=== PATIENT | female | born 1985 | race Caucasian/White ===

== ENCOUNTER 2017-05-20 23:44 | Emergency (ER) | payer BC, OTHER ==
[2017-05-21] MEDS ORDERED: Famotidine 20 MG TAB ONE (00:08)
[2017-05-21] MEDS ORDERED: predniSONE 20 MG TAB ONE (00:08)
== END 2017-05-21 00:35 | disposition home or self-care (01) ==
LOC: SCSER 23:44
DX: T78.40XA Allergy, unspecified, initial encounter (principal); K58.9 Irritable bowel syndrome, unspecified; F32.9 Major depressive disorder, single episode, unspecified
CPT/HCPCS: J7506; J7620

== ENCOUNTER 2019-01-14 22:23 | Inpatient (IN) | payer BC ==
[~2019-01-14 22:23] MED LIST: Bupivacaine/Epinephrine 0.25% 30 ML VIAL ONE; ePHEDrine/0.9% NaCl/PF SYRINGE 50 mg/10 ml ONE
[2019-01-14] MEDS: Lactated Ringer's 1,000 ML IV SCH (23:00)
[2019-01-14 23:14] VITALS: BMI 32.8
[2019-01-14] MEDS ORDERED: Ondansetron PF 4 MG/2 ML Vial IVP PRN (23:21)
[2019-01-14] MEDS ORDERED: Carboprost 250 MCG/ML AMP IM PRN (23:21)
[2019-01-14] MEDS ORDERED: Lidocaine 1% (PF) 30 ML VIAL SC PRN (23:21)
[2019-01-14] MEDS ORDERED: Ibuprofen 800 MG TAB PO PRN (23:21)
[2019-01-14] MEDS ORDERED: hydrALAZINE 20 MG/ML VIAL SLOW IVP PRN ×2 (23:21→23:49)
[2019-01-14] MEDS ORDERED: Misoprostol 200 MCG TAB PR PRN (23:21)
[2019-01-14] MEDS ORDERED: Promethazine HCl 25 MG/ML VIAL IM PRN (23:21)
[2019-01-14] MEDS ORDERED: Acetaminophen 500 MG TAB PO PRN (23:21)
[2019-01-14] MEDS ORDERED: NS / Oxytocin 40 units/1000ml 1,000 ML IV PRN (23:21)
[2019-01-14] MEDS ORDERED: Diphenoxylate HCl/Atropine Tablet PO PRN ×2 (23:21)
[2019-01-14] MEDS ORDERED: hydrALAZINE 20 MG/ML VIAL ONE (23:26)
[2019-01-14] MEDS ORDERED: NS w/ Oxytocin 10 units 500 ML IV SCH (23:30)
[2019-01-14] MEDS ORDERED: Magnesium Sulfate 20 gm/500 ml 20 GM/500 ML BAG IVPB SCH (23:45)
[2019-01-14 23:51] LABS: Hemoglobin 12.7 g/dL (12.0-16.0); Mean Corpuscular HGB CONC 34.6 g/dL (32.0-36.0); Mean Corpuscular Hemoglobin 30.4 pg (27.0-31.0); Mean Platelet Volume 8.4 fL (7.4-10.4); Platelet Count 293 thou/uL (130-400); RBC Distribution Width 12.5 % (11.5-14.5); Red Blood Cell (RBC) Count 4.18 mill/uL (4.20-5.40); White Blood Cell (WBC) Count 13.8 thou/uL (4.8-10.8)
[2019-01-14] MEDS ORDERED: Magnesium Sulfate 20 gm/500 ml 20 GM/500 ML BAG ONE (23:56)
[2019-01-14] MEDS ORDERED: Calcium Gluc 4.6 MEQ/10 ML (100 MG/ML) SLOW IVP PRN (23:56)
[2019-01-15] MEDS ORDERED: Fentanyl 4 mcg/Bup 0.1% Cadd 100 ML ONE (00:01)
[2019-01-15 00:13] LABS: ALT (SGPT) 20 U/L (8-55); AST (SGOT) 19 U/L (5-34); Albumin 3.4 g/dL (3.5-5.0); Alkaline Phosphatase 269 U/L (40-150); Anion Gap 14 mmol/L (10-20); BUN (Urea Nitrogen) 10 mg/dL (7.0-18.7); Bilirubin, Total 0.3 mg/dL (0.2-1.2); Calc. Creatinine Clearance 160 mL/min (70-130); Calcium 9.7 mg/dL (7.8-10.44); Carbon Dioxide 18 mmol/L (22-29); Chloride 106 mmol/L (98-107); Estimated GFR-MDRD Greater than 90; Globulin 3.4 g/dL (2.4-3.5); Glucose 125 mg/dL (70-105); Potassium 3.5 mmol/L (3.5-5.1); Protein, Total 6.8 g/dL (6.0-8.3); Sodium 134 mmol/L (136-145)
[2019-01-15 00:30] LABS: HBSAg Index 0.21 S/CO (0-0.99); Hep B Surf Ag Non-Reactive S/CO (NonReactive); Syphilis Antibody Nonreactive (Nonreactive)
[2019-01-15] MEDS ORDERED: PHENYLEPHRINE-NS 100 MCG/ML 10 ML SYRINGE ONE ×3 (01:10→12:24)
[2019-01-15] MEDS ORDERED: ePHEDrine/0.9% NaCl/PF SYRINGE 50 mg/10 ml ONE ×2 (01:43→03:01)
[2019-01-15] MEDS: Lactated Ringer's 1,000 ML IV SCH ×3 (02:06→16:12)
[2019-01-15] MEDS ORDERED: Fentanyl 100 MCG/2 ML VIAL ONE (02:06)
[2019-01-15] MEDS ORDERED: Bicitra 30 ML UDCUP ONE (03:00)
[2019-01-15] MEDS ORDERED: Ondansetron PF 4 MG/2 ML Vial ONE ×2 (03:01→12:24)
[2019-01-15] MEDS ORDERED: Oxytocin 10 UNITS/ML VIAL ONE ×2 (03:01→03:49)
[2019-01-15] MEDS ORDERED: Lidocaine 2% 10 ML INJ ONE (03:02)
[2019-01-15] MEDS ORDERED: HYDROmorphone 2 MG/ML VIAL SLOW IVP PRN (03:47)
[2019-01-15] MEDS ORDERED: Ondansetron HCl/PF 4 MG/2 ML Vial IVP PRN (03:47)
[2019-01-15] MEDS ORDERED: MORPHINE 5 MG/10 ML PF VIAL ONE (03:47)
[2019-01-15] MEDS ORDERED: Ondansetron PF 4 MG/2 ML Vial IVP PRN (03:47)
[2019-01-15] MEDS ORDERED: L&D-Morphine 4 MG/ML VIAL SLOW IVP PRN (03:47)
[2019-01-15] MEDS ORDERED: Naloxone HCl 0.4 mg/ml Vial IV PRN (03:47)
[2019-01-15] MEDS ORDERED: Ketorolac Tromethamine 30 MG/ML VIAL IVP PRN (03:47)
[2019-01-15] MEDS ORDERED: Naloxone HCl 0.4 mg/ml Vial IVP PRN ×2 (03:47)
[2019-01-15] MEDS ORDERED: Meperidine HCl/PF 25 MG/ML VIAL SLOW IVP PRN (03:47)
[2019-01-15] MEDS ORDERED: Promethazine HCl 25 MG SUPP PR PRN (03:47)
[2019-01-15] MEDS ORDERED: diphenhydrAMINE 50 MG/ML VIAL IVP PRN (03:47)
[2019-01-15] MEDS ORDERED: Promethazine HCl 25 MG/ML VIAL IM PRN (03:47)
[2019-01-15] MEDS ORDERED: Ketorolac Tromethamine 30 MG/ML VIAL IVP SCH (04:00)
[2019-01-15] MEDS ORDERED: Communication Order-Pharmacy FS SCH (04:00)
[2019-01-15] MEDS ORDERED: Phenylephrine HCL 10 MG/ML VIAL ONE (04:04)
[2019-01-15] MEDS ORDERED: diphenhydrAMINE 25 MG CAP PO PRN ×2 (05:07→21:31)
[2019-01-15] MEDS ORDERED: hydrALAZINE 20 MG/ML VIAL SLOW IVP PRN ×2 (05:07→21:31)
[2019-01-15] MEDS ORDERED: Lanolin Ointment 7 GM TUBE TOP PRN ×2 (05:07→21:31)
[2019-01-15] MEDS: Ibuprofen 800 MG TAB PO SCH ×4 (07:44→23:18)
[2019-01-15] MEDS: Acetaminophen/Codeine 30-300mg Tablet PO PRN ×3 (07:44→21:52)
[2019-01-15] MEDS ORDERED: Adacel (T-DAP) 0.5 ML SYRINGE IM ONE (09:00)
[2019-01-15] MEDS: Prenatal Vitamin 1 TAB PO SCH (09:38)
[2019-01-15] MEDS: Ferrous Sulfate 325 MG TAB PO SCH ×3 (09:38→21:59)
--- NOTE | 2019-01-15 10:20 | OP ---
DATE OF PROCEDURE: 01/15/2019 ADDENDUM: I was present and scrubbed to assist the uncomplicated primary low-transverse with Dr. Aundrea Melgar. Please see her note for full details. Job ID: [id number]
[2019-01-15 11:56] LABS: Hemoglobin 9.9 g/dL (12.0-16.0); Mean Corpuscular HGB CONC 34.5 g/dL (32.0-36.0); Mean Corpuscular Hemoglobin 30.8 pg (27.0-31.0); Mean Corpuscular Volume 89.3 fL (78.0-98.0); Mean Platelet Volume 8.5 fL (7.4-10.4); Platelet Count 227 thou/uL (130-400); RBC Distribution Width 12.8 % (11.5-14.5); Red Blood Cell (RBC) Count 3.22 mill/uL (4.20-5.40); White Blood Cell (WBC) Count 12.8 thou/uL (4.8-10.8)
[2019-01-15] MEDS ORDERED: Lidocaine 2% PF 5 ML VIAL ONE (12:24)
[2019-01-15] MEDS ORDERED: ePHEDrine 50 MG/ML VIAL ONE (12:24)
[2019-01-15] MEDS ORDERED: Acetaminophen/Codeine 30-300mg Tablet PO PRN ×2 (16:00→21:31)
[2019-01-15] MEDS: Magnesium Sulfate 20 GM/WATER 500 ML BAG IVPB SCH (16:05)
--- NOTE | 2019-01-15 18:09 | EKG ---
Test Reason : Blood Pressure : / mmHG Vent. Rate : 103 BPM Atrial Rate : 103 BPM P-R Int : 118 ms QRS Dur : 072 ms QT Int : 358 ms P-R-T Axes : 038 023 016 degrees QTc Int : 468 ms Sinus tachycardia Nonspecific ST abnormality Abnormal ECG When compared with ECG of 13-JUL-2015 09:16, No significant change was found Confirmed by DR. Eleuterio CHINCHILLA ([id number]) on 01/15/2019 6:08:43 PM Referred By: SANTOS Confirmed By:DR. Eleuterio CHINCHILLA
[2019-01-15] MEDS ORDERED: Simethicone Chewable 80 MG TAB PO PRN (21:31)
[2019-01-16] MEDS: Ibuprofen 800 MG TAB PO SCH ×5 (06:29→21:27)
[2019-01-16] MEDS: Lactated Ringer's 1,000 ML IV SCH ×6 (07:59→19:01)
[2019-01-16] MEDS: Magnesium Sulfate 20 GM/WATER 500 ML BAG IVPB SCH (08:00)
[2019-01-16] MEDS: Acetaminophen/Codeine 30-300mg Tablet PO PRN ×2 (08:07→22:01)
[2019-01-16] MEDS: Prenatal Vitamin 1 TAB PO SCH ×2 (08:07→08:16)
[2019-01-16] MEDS: Ferrous Sulfate 325 MG TAB PO SCH ×3 (08:07→21:27)
[2019-01-16] MEDS: Simethicone Chewable 80 MG TAB PO PRN ×2 (08:08→19:00)
[2019-01-16] MEDS ORDERED: CEFAZOLIN 2 GM in Premix Bag 1 BAG IVPB SCH (13:30)
[2019-01-17] MEDS: Ibuprofen 800 MG TAB PO SCH ×3 (02:49→13:59)
[2019-01-17] MEDS: Ferrous Sulfate 325 MG TAB PO SCH ×2 (02:49→10:02)
[2019-01-17 06:35] VITALS: TEMP 98.3
[2019-01-17] MEDS: Lactated Ringer's 1,000 ML IV SCH ×2 (07:45)
[2019-01-17 07:58] VITALS: BP 149/86
[2019-01-17] MEDS: Prenatal Vitamin 1 TAB PO SCH (10:01)
[2019-01-17] MEDS ORDERED: Docusate 100 MG CAP PO PRN (10:58)
--- NOTE | 2019-01-27 14:04 | DN ---
DATE OF PROCEDURE: 01/15/2019 PREOPERATIVE DIAGNOSES: 1. A 33-year-old, G1, in active labor. 2. Severe blood pressures with administration of hydralazine x2, magnesium initiation and epidural in a short interval. 3. Persistent hypotension with subsequent non-reassuring heart tracing despite multiple pressure support medications. 4. Term . 5. Group B Streptococcus negative. POSTOPERATIVE DIAGNOSES: 1. A 33-year-old, G1, in active labor. 2. Severe blood pressures with administration of hydralazine x2, magnesium initiation and epidural in a short interval. 3. Persistent hypotension with subsequent non-reassuring heart tracing despite multiple pressure support medications. 4. Term . 5. Group B Streptococcus negative. 6. Live born female with Apgars of 8 and 9 at 1 and 5 minutes respectively, weighing 6 pounds 15 ounces. QUANTITATIVE BLOOD LOSS: 280 mL. PROCEDURES PERFORMED: 1. Primary low transverse section for non-reassuring heart tracing. 2. EKG for evaluation of potential cardiac abnormalities secondary to persistent blood pressure derangement that was within normal limits postoperatively. CLINICAL HISTORY: This patient is a 33-year-old female G1, who had an uneventful course, who presented to Labor and Delivery with a concern for active labor. She was checked and noted to be 1 cm and 90% effaced, but with regular painful contractions. The patient did have a significant history of anxiety and had been noted to have 2 mild range blood pressures in the office just a day prior. The patient, however, on admission had pressures in the upwards of 160s to 170s over 100s. The preeclampsia laboratory studies were ordered stat and the patient was monitored with serial blood pressure reading. Due to the concern from the nursing staff, hydralazine 5 mg was given per the ACOG protocol, followed with a slow reduction to high mild range, then 20 minutes later, hydralazine was given. Laboratory studies returned and were normal; however, the liver enzymes were still pending when the decision to give magnesium was made secondary to reported hyperreflexia. Unfortunately, the timing of both the hydralazine and magnesium corresponded with the patient's request for an epidural. She had placement of an epidural and subsequent hypotension from all three modalities in a short interval. The patient had a prolonged deceleration, which subsequently improved and shortened; however, was never able to correct despite multiple doses of ephedrine and then subsequently phenylephrine. Approximately 2 hours were spent at the bedside trying to reposition the patient as she was continuing to progress with active labor from 1 cm to 3 cm to 5 cm by the time the decision for an operative delivery was made. The patient during this entire time had moderate variability, which was evidence for being able to watch the tracing as long as it was monitored. However, with the loss of spontaneous acceleration and transition to minimal variability, the patient was counseled on a need to proceed with a surgical delivery. The risks, benefits, and possible complications were discussed and the patient was taken back for a primary low-transverse . DESCRIPTION OF PROCEDURE: The patient was laid on the operating table with a leftward tilt and an incision was made after testing for adequate anesthesia in the lower abdomen in a Pfannenstiel manner. This incision was carried down to the fascia. The fascia was nicked in the midline and extended out bilaterally. The Glory clamps were used x2 to elevate the rectus muscles off the superior edge and then the rectus and pyramidalis muscles off the inferior edge. The rectus muscles were then in the midline and the peritoneum was breached and extended by a combination of sharp and blunt dissection. The bladder flap was created with the Metzenbaum scissors and reflected inferiorly. The incision was then made in the uterus in the lower uterine segment in a Pfannenstiel manner and carried down to the amnion. The amniotomy was performed with noted clear fluid. The surgeon's hand was placed into the incision and the vertex was lifted to the incision for delivery. The anterior shoulder followed by the posterior shoulder followed by the remainder of the infant's body was delivered and the infant cried vigorously and spontaneously. The cord was doubly clamped and cut and handed over to the neonatology nurses in attendance to the delivery. The placenta was then manually removed, and after a cord blood was obtained and a cord gas was obtained. The cord gas was noted to be 7.18 for a pH and the uterus was then exteriorized and cleansed of all debris and massaged. The uterine closure was then in a running locking fashion with excellent hemostasis. A second imbricating layer was performed and the bladder flap was reapproximated over this incision. The uterus was then placed back inside the abdomen after the gutters were cleansed of all debris and the Seprafilm was placed on the anterior surface. The peritoneum was then closed in a running fashion. The rectus muscles were reapproximated. The fascia was then closed in a running fashion with excellent hemostasis. The subcutaneous tissues were copiously irrigated and Bovie cautery was used to correct any bleeding. Multiple interrupted [id number] and single interrupted sutures were placed to close the space in the incision and build up the tissues. The 3-0 Michael needle was then used to close the skin and Steri-Strips and Mastisol were placed over this. A pressure dressing was placed over the closure with a Telfa, Tegaderm, and 2 x 2s. The patient tolerated the procedure well and was able to recover in Labor and delivery. Anesthesia had a concern for ST-segment changes secondary to prolonged use of pressure support medication while monitoring with a 3-lead EKG. A 12-lead was then performed in the recovery area with noted appropriate changes, but not any significant sequela from the medication administration. The patient was monitored closely with serial blood pressure reading and a had noted eventually resolved to normal blood pressures with the resolution of anesthesia. There were no other issues surrounding this delivery. The stayed with the mother. Again, she was a live born female weighing 6 pounds 15 ounces with Apgars of 8 and 9 at 1 and 5 minutes respectively. Job ID: [id number]
--- NOTE | 2019-01-27 23:07 | PQF ---
SUKHJINDER Hatch [id number] CLINICAL DOCUMENTATION CLARIFICATION FORM: POST DISCHARGE Addendum to original discharge summary date: ____ Late entry note date: __ DATE: 01/27/2019 ATTN:SUKHJINDER PATTON Please exercise your independent, professional judgment in responding to the clarification form. Clinical indicators are provided on the bottom of this form for your review Please check appropriate box(s) Depression (check appropriate): [ ] Manic[ ] Single past episode[ ] Mild [ ] Bipolar[ ] Current episode[ ] Moderate [ ] Manic[ ] In remission[ ] Severe [ ] Depressive[ ] Partial [ ] Mixed[ ] Full [ ] Major Depressive Disorder[ ] With Psychosis [ ] Persistent Mood Disorder[ ] Without Psychosis [ ] Other diagnosis [ ] Unable to determine For continuity of documentation, please document condition throughout progress notes and discharge summary. Thank You. CLINICAL INDICATORS - SIGNS / SYMPTOMS / LABS - Depression-Progress note, 01/17 - persistent hypotension- Obstetric DS, 01/15 - GA at delivery: 38.0 wks, Term-Delivery summary RISK FACTORS - -L and D note, 01/15, Ramón Guillaume MD - Constipation-Progress note, 01/17 TREATMENT: -resumed home Meds- Progress note, 01/17 (This form is maintained as a part of the permanent medical record) 2014 [employer] All Rights Reserved John Beavers [not provided] [not provided] MERRY
== END 2019-01-17 14:00 | disposition home or self-care (01) | DRG 788 ==
LOC: L&D/OP 22:23 → L&D 01-15 02:42 → 3SW 01-15 20:42
PROVIDERS: ADMIT Obstetrics & Gynecology; ATTEND Obstetrics & Gynecology
PROC: 10D00Z1 Extraction of Products of Conception, Low, Open Approach (ICD-10-PCS; principal; 2019-01-16)
DX: O76 Abnormality in fetal heart rate and rhythm complicating labor and delivery (principal); O26.53 Maternal hypotension syndrome, third trimester; Z3A.38 38 weeks gestation of pregnancy; Z37.0 Single live birth; O99.344 Other mental disorders complicating childbirth; F32.9 Major depressive disorder, single episode, unspecified
CPT/HCPCS: 36415; 51702; 80053; 82570; 82805; 84156; 85027; 86780; 86850; 86900; 86901; 87340; 93005; 93010; 99285; J0360; J0690; J2001; J2274; J2370; J2405; J2590; J3010; J3475; J3490